=== PATIENT | female | born 1950 | race Caucasian/White ===

== ENCOUNTER 2019-06-20 09:28 | Outpatient (CLI) | payer MEDICARE, BC ==
--- NOTE | 2019-06-20 09:56 | RAD ---
PA AND LATERAL VIEWS CHEST: Date: 06/20/2019 HISTORY: Chronic cough. FINDINGS: There are no previous exams for comparison. The heart size is normal. The aorta is tortuous. The lungs are expanded without lobar consolidation, pneumothoraces, or pleural effusions. There are degenerative changes in the spine. IMPRESSION: No radiographic evidence of acute cardiopulmonary process. POS: [facility]
--- NOTE | 2019-06-20 13:15 | RAD ---
EXAM: XR Barium Swallow Esophagus PROVIDED CLINICAL HISTORY: Esophageal dysphagia. Reflux disease. COMPARISON: None FINDINGS: A double contrast esophagram was performed in usual fashion. The esophagus demonstrates a normal appe arance without mucosal irregularity or focal narrowing appreciated. Mild decrease in primary esophageal peristalsis with minimal tertiary contractions were noted during the exam. There are extri nsic compressions on the upper cervical esophagus related to prominent osteophytes in the cervical spine. A 12.5 mm barium tablet was administered during the exam which traverses the GE junction freel y and without holdup. No significant hiatal hernia is appreciated. IMPRESSION: Normal-appearing esophagus without focal narrowing. Mild decrease in esophageal peristalsis as well a s tertiary contractions were noted in the esophagus. A 12.5 mm barium tablet traverses the GE junction freely and without holdup.
== END 2019-06-20 09:29 | disposition home or self-care (01) ==
LOC: RAD 09:28
PROVIDERS: ATTEND Physician Assistant Medical
DX: K21.9 Gastro-esophageal reflux disease without esophagitis (principal); D37.4 Neoplasm of uncertain behavior of colon; R11.0 Nausea; R05 Cough; R13.19 Other dysphagia; K22.8 Other specified diseases of esophagus
CPT/HCPCS: 71046; 74220

== ENCOUNTER 2023-08-21 12:12 | Emergency (ER) | payer MEDICARE, BC | END 2023-08-21 18:23 | disposition home or self-care (01) | LOC: ERS 12:12 | DX: K80.50 Calculus of bile duct without cholangitis or cholecystitis without obstruction (principal); R19.7 Diarrhea, unspecified; Z55.6 Problems related to health literacy | CPT/HCPCS: 36415; 71045; 74177; 76705; 80053; 81001; 83605; 84484; 85025; 93005; 96374; 96375; C9113; J2405; Q9967 ==